=== PATIENT | female | born 1980 | race African-American/Black ===

== ENCOUNTER 2017-01-27 05:52 | Emergency (ER) | payer OTHER ==
[~2017-01-27] VITALS: Ht 160 cm; Wt 59.0 kg
[~2017-01-27 05:52] MED LIST: DOXE6TAB3 PO; LABE100T3 PO
[2017-01-27 06:20] VITALS: BP 131/75
[2017-01-27] MEDS ORDERED: CYCL5TAB PO (07:09)
--- NOTE | 2017-01-27 07:09 | PHYS DOC ---
Past Medical History Past Medical History: Hypertension, Other Additional Past Medical Histor: ectopic pregancy, chronic back pain Past Surgical History: Other Additional Past Surgical Histo: ectopic Alcohol Use: None Drug Use: None Adult General Chief Complaint Chief Complaint: PAIN CONTROL HPI HPI Patient is a 36 year old female who presents with 1 week of migratory back pain ; upper back pain and lower back pain. States pain is achy, intermittent. Denies inciting event or trauma. Denies rash, chest pain, dyspnea, cough, abd pain, dysuria, hematuria, vaginal bleeding or discharge. Review of Systems Review of Systems Constitutional: Denies fever or chills [] Eyes: Denies change in visual acuity, redness, or eye pain [] HENT: Denies nasal congestion or sore throat [] Respiratory: Denies cough or shortness of breath [] Cardiovascular: No additional information not addressed in HPI [] GI: Denies abdominal pain, nausea, vomiting, bloody stools or diarrhea [] : Denies dysuria or hematuria [] Musculoskeletal: Denies joint pain [] Integument: Denies rash or skin lesions [] Neurologic: Denies headache, focal weakness or sensory changes [] Endocrine: Denies polyuria or polydipsia [] Allergies Allergies Allergies Coded Allergies Type Severity Reaction Last Updated Verified No Known Drug Allergies 05/07/14 No Physical Exam Physical Exam Constitutional: Well developed, well nourished, no acute distress, non-toxic appearance. [] HENT: Normocephalic, atraumatic, bilateral external ears normal, oropharynx moist, nose normal. [] Eyes: PERRLA, EOMI. [] Neck: Normal range of motion, supple. [] Cardiovascular:Heart rate regular rhythm [] Lungs & Thorax: Bilateral breath sounds clear to auscultation [] Abdomen: Bowel sounds normal, soft, no tenderness. [] Skin: Warm, dry, no erythema, no rash. [] Back: No midline spinal tenderness, no CVA tenderness. Has some tenderness throughout thoracic and lumbar paraspinal muscles without visual or palpable abnormality. [] Extremities: ROM intact, no edema. [] Neurologic: Alert and oriented X 3, normal motor function, normal sensory function, no focal deficits noted. [] Psychologic: Affect normal, judgement normal, mood normal. [] Current Patient Data Vital Signs Vital Signs Date Time Temp Pulse Resp B/P Pulse Ox O2 Delivery O2 Flow Rate FiO2 01/27/17 06:20 98.6 81 18 100 Room Air 98.6 Lab Values Laboratory Tests Test 01/27/17 06:51 POC Urine HCG, Qualitative Hcg negative (Negative) Course & Med Decision Making Course & Med Decision Making Pertinent Labs and Imaging studies reviewed. (See chart for details) Discussed symptomatic care. Return precautions given. She understood and agrees with plan. Dragon Disclaimer Dragon Disclaimer This electronic medical record was generated, in whole or in part, using a voice recognition dictation system. Departure Departure Impression: Primary Impression: Back pain Disposition: HOME, SELF-CARE Condition: STABLE Referrals: Seun MCBRIDE MD (PCP) Patient Instructions: Back Pain, Adult, [id number] Additional Instructions: Take Tylenol or ibuprofen as needed for moderate pain. Take cyclobenzaprine as needed for severe pain. Do not drink, drive or operate heavy machinery after taking cyclobenzaprine as it may make you sleepy. Follow-up with your primary care doctor. Return for any concerns. Scripts Cyclobenzaprine Hcl 5 Mg Tablet1 Tab PO TID PRN MUSCLE SPASMS #10 TAB Prov:Miguel GHOTRA MD 01/27/17 Problem Qualifiers Primary Impression: Back pain Back pain location: back pain in unspecified location Chronicity: acute Back pain laterality: bilateral Qualified Code: M54.9 - Dorsalgia, unspecified Miguel GHOTRA MD Jan 27, 2017 07:09
== END 2017-01-27 07:22 | disposition home or self-care (01) ==
LOC: ER 05:52
DX: M54.5 Low back pain (principal); M54.6 Pain in thoracic spine; G89.29 Other chronic pain; I10 Essential (primary) hypertension
CPT/HCPCS: 81025; 99283

== ENCOUNTER → 2017-04-23 | Outpatient (CLI) | payer OTHER ==
[~2017-04-23] MED LIST changes: +CYCL5TAB PO
--- NOTE | 2017-04-23 09:42 | KCIC ---
EXAM: Lumbar spine, 5 views. HISTORY: Lordosis. Pain. COMPARISON: None. FINDINGS: Frontal, lateral, bilateral oblique and coned sacral views of the lumbar spine are obtained. There is minimal lumbar dextrocurvature. There is no listhesis. The vertebral bodies are normal in height and the disc spaces are preserved. There is slight sacralization of the transverse processes at L5. IMPRESSION: 1. No acute osseous finding. 2. Minimal lumbar dextrocurvature. Electronically signed by: Leeann England MD (04/23/2017 9:38 AM)
== END | disposition home or self-care (01) ==
LOC: KCIC 09:03
PROVIDERS: ATTEND Family Medicine
DX: M40.46 Postural lordosis, lumbar region (principal); M43.27 Fusion of spine, lumbosacral region
CPT/HCPCS: 72110

== ENCOUNTER → 2017-07-13 | Outpatient (CLI) | payer MEDICAID, OTHER ==
--- NOTE | 2017-07-15 15:19 | RAD ---
DATE: 07/15/2017 EXAM: DIGITAL SCREEN BILAT W/CAD HISTORY: 36-year-old female for baseline mammogram COMPARISON: None This study was interpreted with the benefit of Computerized Aided Detection (CAD). The breast parenchyma is heterogeneously dense, which could reduce sensitivity of mammography. Breast parenchyma level C. FINDINGS: No pathologically enlarged lymph nodes or skin thickening. No suspicious calcification or spiculated mass. Focal asymmetry seen in the upper outer quadrant of the left breast approximately 7 cm from the nipple on MLO view and measuring 1.6 x 1.1 cm in dimension. IMPRESSION: Small area of focal asymmetry in the left breast most likely overlapping glandular tissue. However, spot compression views are recommended for further evaluation. BI-RADS 0: Incomplete. BI-RADS CATEGORY: 0 INCOMPLETE: NEEDS ADDITIONAL IMAGING EVALUATION AND/OR PRIOR MAMMOGRAMS FOR COMPARISON. PQRS compliance statement: Patient information was entered into a reminder system with a target due date for the next mammogram. Mammography is a sensitive method for finding small breast cancers, but it does not detect them all and is not a substitute for careful clinical examination. A negative mammogram does not negate a clinically suspicious finding and should not result in delay in biopsying a clinically suspicious abnormality. "Our facility is accredited by the [employer] Mammography Program."
== END | disposition home or self-care (01) ==
LOC: MAMMO 08:12
PROVIDERS: ATTEND Family Medicine
DX: Z12.31 Encounter for screening mammogram for malignant neoplasm of breast (principal)
CPT/HCPCS: G0202; 77067

== ENCOUNTER → 2017-07-22 | Outpatient (CLI) | payer OTHER ==
--- NOTE | 2017-07-22 11:01 | RAD ---
DATE: 07/22/2017 EXAM: DIGITAL DIAGNOSTIC LT HISTORY: Asymmetric density in the left breast. COMPARISON: 07/13/2017 This study was interpreted with the benefit of Computerized Aided Detection (CAD). The breast parenchyma is heterogeneously dense, which could reduce sensitivity of mammography. Breast parenchyma level C. FINDINGS: Spot compression MLO and CC digital mammograms left breast was obtained. Comparison study is dated 07/13/2017. The area of increased density seen on the patient's recent mammogram compresses out and today spot compression mammograms. No mass is seen. IMPRESSION: The asymmetric density within the left breast compresses out on today's spot compression mammograms. I would recharacterize the patient's mammograms as a BI-RADS Category 1, negative no mammographic evidence of malignancy. Routine yearly screening mammography is recommended for follow-up. BI-RADS CATEGORY: 1 NEGATIVE RECOMMENDED FOLLOW-UP: 12M 12 MONTH FOLLOW-UP PQRS compliance statement: Patient information was entered into a reminder system with a target due date 07/22/2018 for the next mammogram. Mammography is a sensitive method for finding small breast cancers, but it does not detect them all and is not a substitute for careful clinical examination. A negative mammogram does not negate a clinically suspicious finding and should not result in delay in biopsying a clinically suspicious abnormality. "Our facility is accredited by the [employer] Mammography Program."
== END | disposition home or self-care (01) ==
LOC: MAMMO 10:27
PROVIDERS: ATTEND Family Medicine
DX: R92.8 Other abnormal and inconclusive findings on diagnostic imaging of breast (principal); N64.89 Other specified disorders of breast
CPT/HCPCS: G0206; 77065

== ENCOUNTER → 2017-08-21 | Outpatient (CLI) | payer OTHER ==
--- NOTE | 2017-08-21 15:34 | KCIC ---
MRI Lumbar Spine without contrast History: Low back pain Technique: Multiplanar, multi sequential noncontrast MR imaging was performed of the lumbar spine. Contrast: None Comparison: None Findings: Lumbar vertebral body stature and AP alignment are preserved. There is mild to moderate degenerative disc disease L5-S1. There is anterior radial tear L5-S1. There are likely small hemangiomas of L3 and L5. There is no significant marrow edema. Conus terminates at L1-2. L3-L4: Neural foramina and spinal canal are adequate. L4-L5: Neural foramina and spinal canal are adequate. L5-S1: Neural foramina and spinal canal are adequate. Impression: 1. There is no significant lumbar spinal stenosis or neural foramina compromise. There is mild/moderate degenerative disc disease L5-S1. There is anterior radial tear L5-S1. Electronically signed by: Eren Samson MD (08/21/2017 3:30 PM) [email or web address]
== END | disposition home or self-care (01) ==
LOC: KCIC MRI 13:55
PROVIDERS: ATTEND Family Medicine
DX: M51.37 Other intervertebral disc degeneration, lumbosacral region (principal)
CPT/HCPCS: 72148

== ENCOUNTER 2018-09-27 05:49 | Emergency (ER) | payer OTHER ==
[~2018-09-27] VITALS: Ht 172.7 cm; Wt 59.0 kg
[~2018-09-27 05:49] MED LIST changes: -LABE100T3 PO; +LABE100T5 PO
[2018-09-27 06:00] VITALS: BP 122/71
--- NOTE | 2018-09-27 06:30 | PHYS DOC ---
Past Medical History Past Medical History: Anxiety, Hypertension, Other Additional Past Medical Histor: INSOMNIA Past Surgical History: No Surgical History Additional Past Surgical Histo: ectopic Alcohol Use: None Drug Use: None Adult General Chief Complaint Chief Complaint: VAGINAL PROBLEM HPI HPI Patient is a 37 year old presented to ER today for evaluation of vaginal discharge for about a month. Patient says she was sexually active with a new partner, she said the condom broke. Patient status discharge was smelly in nature. She denies any pelvic pain, no vaginal bleeding, no abdominal pain, no fever, no vomiting. She also complaint of vaginal ITCHING. Review of Systems Review of Systems Constitutional: Denies fever or chills [] Eyes: Denies change in visual acuity, redness, or eye pain [] HENT: Denies nasal congestion or sore throat [] Respiratory: Denies cough or shortness of breath [] Cardiovascular: No additional information not addressed in HPI [] GI: Denies abdominal pain, nausea, vomiting, bloody stools or diarrhea [] : Positive for vaginal discharge Musculoskeletal: Denies back pain or joint pain [] Integument: Denies rash or skin lesions [] Neurologic: Denies headache, focal weakness or sensory changes [] Endocrine: Denies polyuria or polydipsia [] All other systems were reviewed and found to be within normal limits, except as documented in this note. Current Medications Current Medications Current Medications Medications (Trade) Dose Ordered Sig/Balbina Start Time Stop Time Status Last Admin Dose Admin Azithromycin (Zithromax) 1,000 mg 1X ONCE 09/27/18 06:45 09/27/18 06:46 DC 09/27/18 06:48 1,000 MG Ceftriaxone Sodium (Rocephin Im) 250 mg 1X ONCE 09/27/18 06:45 09/27/18 06:46 DC 09/27/18 06:48 250 MG Fluconazole (Diflucan) 150 mg 1X ONCE 09/27/18 06:45 09/27/18 06:46 DC 09/27/18 06:46 150 MG Allergies Allergies Allergies Coded Allergies Type Severity Reaction Last Updated Verified No Known Drug Allergies 05/07/14 No Physical Exam Physical Exam Constitutional: Well developed, well nourished, no acute distress, non-toxic appearance. [] HENT: Normocephalic, atraumatic, Eyes: PERRLA, EOMI, conjunctiva normal, no discharge. [] Neck: Normal range of motion, no tenderness, supple, no stridor. [] Cardiovascular:Heart rate regular rhythm, no murmur [] Lungs & Thorax: Bilateral breath sounds clear to auscultation [] Abdomen: Bowel sounds normal, soft, no tenderness, no masses, no pulsatile masses. : PELVIC EXAM: MODERATE DISCHARGE, WHITISH, NO ADNEXA TENDERNESS. Skin: Warm, dry, no erythema, no rash. [] Back: No tenderness, no CVA tenderness. [] Extremities: No tenderness, no cyanosis, no clubbing, ROM intact, no edema. [] Neurologic: Alert and oriented X 3, normal motor function, normal sensory function, no focal deficits noted. [] Psychologic: Affect normal, judgement normal, mood normal. [] Current Patient Data Vital Signs Vital Signs Date Time Temp Pulse Resp B/P (MAP) Pulse Ox O2 Delivery O2 Flow Rate FiO2 09/27/18 06:00 98.4 89 18 122/71 (88) 100 Room Air 98.4 Lab Values Laboratory Tests Test 09/27/18 07:04 POC Urine HCG, Qualitative Hcg negative (Negative) Microbiology 09/27/18 Wet Prep - Final, Complete EKG EKG [] Radiology/Procedures Radiology/Procedures [] Course & Med Decision Making Course & Med Decision Making Pertinent Labs and Imaging studies reviewed. (See chart for details) [] Dragon Disclaimer Dragon Disclaimer This electronic medical record was generated, in whole or in part, using a voice recognition dictation system. Departure Departure Impression: Primary Impression: Vaginitis Disposition: 01 HOME, SELF-CARE Condition: STABLE Referrals: Seun MCBRIDE MD (PCP) Patient Instructions: Vaginitis, [id number] Scripts Metronidazole (FLAGYL) 500 Mg Tablet 1 TAB PO BID for 7 Days, #14 TAB Prov: JEWELS TORRES DO 09/27/18 JEWELS TORRES DO Sep 27, 2018 06:30
[2018-09-27] MEDS ORDERED: cefTRIAXone IM 250 MG VIAL IM ONE (06:45)
[2018-09-27] MEDS ORDERED: AZITHROMYCIN 250 MG TABLET. PO ONE (06:45)
[2018-09-27] MEDS ORDERED: FLUCONAZOLE 100 MG TABLET. PO ONE (06:45)
[2018-09-27 07:22] LABS: BILIRUBIN,URINE NEGATIVE (NEG); CLARITY,URINE CLEAR; COLOR,URINE YELLOW; NITRITE,URINE NEGATIVE (NEG); PH,URINE 6.5; PROTEIN,URINE NEGATIVE (NEG-TRACE); UROBILINOGEN,URINE 0.2 mg/dL (0.2 mg/dL)
[2018-09-27] MEDS ORDERED: METR500T PO (07:23)
[2018-09-27 07:42] LABS: BACTERIA,URINE FEW /HPF (0-FEW); RBC,URINE OCC /HPF (0-2); SQUAMOUS EPITHELIAL CELL,UR MOD /LPF
[2018-09-27 07:43] LABS: TRICHOMONAS,URINE PRESENT
[2018-09-29 15:27] LABS: GC PROBE Negative (Negative)
== END 2018-09-27 07:32 | disposition home or self-care (01) ==
LOC: ER 05:49
DX: N76.0 Acute vaginitis (principal); I10 Essential (primary) hypertension
CPT/HCPCS: 81001; 81025; 87086; 87491; 87591; 96372; 99284; J0696; Q0111; Q0144

== ENCOUNTER 2018-10-25 04:09 | Emergency (ER) | payer OTHER ==
[~2018-10-25] VITALS: Ht 160 cm; Wt 59.0 kg
[~2018-10-25 04:09] MED LIST changes: +METR500T PO
[2018-10-25 04:12] VITALS: BP 141/93
[2018-10-25] MEDS ORDERED: NEOM10DR32 AS (04:26)
[2018-10-25] MEDS ORDERED: LIDOCAINE 2% VISCOUS 15 ML SOLUTION. MM ONE (04:30)
--- NOTE | 2018-10-25 05:01 | PHYS DOC ---
Past Medical History Past Medical History: Anxiety, Hypertension, Other Additional Past Medical Histor: INSOMNIA Past Surgical History: No Surgical History Additional Past Surgical Histo: ectopic Alcohol Use: None Drug Use: None Adult General Chief Complaint Chief Complaint: FOREIGNBODY EAR HPI HPI Patient is a 37 year old f p/w cockroach in ear Current Medications Current Medications Current Medications Medications (Trade) Dose Ordered Sig/Balbina Start Time Stop Time Status Last Admin Dose Admin Lidocaine HCl (Viscous Lidocaine) 15 ml 1X ONCE 10/25/18 04:30 10/25/18 04:31 DC 10/25/18 04:15 15 ML Allergies Allergies Allergies Coded Allergies Type Severity Reaction Last Updated Verified No Known Drug Allergies 05/07/14 No Physical Exam Physical Exam Constitutional: Well developed, well nourished mild distress HENT: after removal of cockroach there is noted ear canal erythema. no tm rupture. Eyes: PERRLA, EOMI, conjunctiva normal, no discharge. [] Neck: Normal range of motion, no tenderness, supple, no stridor. [] Pulmonary: Normal respiratory effort no increased work of breathing no obvious chest wall trauma Extremities: No tenderness, no cyanosis, no clubbing, ROM intact, no edema. [] Neurologic: Alert and oriented X 3, normal motor function, normal sensory function, no focal deficits noted. [] Psychologic: Affect normal, judgement normal, mood normal. [] EKG EKG [] Radiology/Procedures Radiology/Procedures [] Course & Med Decision Making Course & Med Decision Making Pertinent Labs and Imaging studies reviewed. (See chart for details) [] er course viscous lidocaine placed in ear canal within a few minutes of arrival bug stopped moving. i pulled it out whole with forceps. pt feeling better cortisporin otic rx. Dragon Disclaimer Dragon Disclaimer This electronic medical record was generated, in whole or in part, using a voice recognition dictation system. Departure Departure Impression: Primary Impression: Foreign body in ear Disposition: 01 HOME, SELF-CARE Condition: STABLE Patient Instructions: Ear Foreign Body, [id number] Scripts Neomycin/Polymyxin B Sulf/Hc ([id number] EAR SUSP) 10 Ml Drops.susp 3 DROP TID, #10 ML Prov: NYASIA HEDRICK MD 10/25/18 NYASIA HEDRICK MD Oct 25, 2018 05:01
== END 2018-10-25 05:05 | disposition home or self-care (01) ==
LOC: ER 04:09
DX: T16.2XXA Foreign body in left ear, initial encounter (principal); I10 Essential (primary) hypertension; X58.XXXA Exposure to other specified factors, initial encounter; Y93.89 Activity, other specified; Y92.89 Other specified places as the place of occurrence of the external cause; Y99.8 Other external cause status
CPT/HCPCS: 69200; 99284-25

== ENCOUNTER 2021-08-01 11:25 | Emergency (ER) | payer OTHER ==
[~2021-08-01] VITALS: Ht 165.1 cm; Wt 80.0 kg
[~2021-08-01 11:25] MED LIST changes: +NEOM10DR32 AS
[2021-08-01 12:37] LABS: BILIRUBIN,URINE NEGATIVE (NEG); CLARITY,URINE CLEAR; COLOR,URINE YELLOW; NITRITE,URINE NEGATIVE (NEG); PROTEIN,URINE NEGATIVE (NEG-TRACE); U PREG PATIENT NEGATIVE (NEG); UROBILINOGEN,URINE 0.2 mg/dL (0.2 mg/dL)
[2021-08-01 12:46] LABS: BACTERIA,URINE FEW /HPF (0-FEW); RBC,URINE OCC /HPF (0-2)
[2021-08-01] MEDS ORDERED: cefTRIAXone IM 500 MG VIAL. IM ONE (14:00)
[2021-08-01] MEDS ORDERED: metroNIDAZOLE 500 MG TABLET PO ONE (14:00)
[2021-08-01] MEDS ORDERED: DOXY100C3 PO (14:03)
[2021-08-01] MEDS ORDERED: METR500T PO (14:03)
[2021-08-01] MEDS ORDERED: FLUC150T PO (14:03)
--- NOTE | 2021-08-01 14:03 | PHYS DOC ---
Past Medical History Past Medical History: Anxiety, Hypertension, Other Additional Past Medical Histor: INSOMNIA Past Surgical History: No Surgical History Additional Past Surgical Histo: ectopic Smoking Status: Current Every Day Smoker Alcohol Use: None Drug Use: None General Adult EDM: Chief Complaint: VAGINAL PROBLEM HPI: HPI: Patient is a 40 year old female presents emergency department with STI concerns. Patient reports having sex in which condom broke during sex a week ago. Patient reports vaginal itching with white discharge with odor over the past 3 days. Patient denies increased urination, denies dysuria, denies increas ed urinary frequency or seeing blood in her urine. Patient denies seeing blood in her stool. Denies nausea, vomiting, diarrhea, denies rashes or lesions to her vaginal area. Patient denies vaginal bleeding. Patient denies nausea, vomiting, diarrhea or abdominal pains. Patient denies recent fever or chills. Denies other physical complaints or physical concerns. Review of Systems: Review of Systems: 14 body systems of review of systems have been reviewed. See HPI for pertinent positives and negative responses, otherwise all other systems are negative, nonpertinent or noncontributory. Constitutional: Negative except as outlined in HPI above. Skin: Negative except as outlined in HPI above. Eyes: Negative except as outlined in HPI above. HENT: Negative except as outlined in HPI above. Respiratory: Negative except as outlined in HPI above. Cardiovascular: Negative except as outlined in HPI above. GI: Negative except as outlined in HPI above. : Negative except as outlined in HPI above. Musculoskeletal: Negative except as outlined in HPI above. Integument: Negative except as outlined in HPI above. Neurologic: Negative except as outlined in HPI above. Endocrine: Negative except as outlined in HPI above. Lymphatic: Negative except as outlined in HPI above. Psychiatric: Negative except as outlined in HPI above. Heart Score: C/O Chest Pain: No Risk Factors: Risk Factors: DM, Current or recent (<one month) smoker, HTN, HLP, family history of CAD, obesity. Risk Scores: Score 0 - 3: 2.5% MACE over next 6 weeks - Discharge Home Score 4 - 6: 20.3% MACE over next 6 weeks - Admit for Clinical Observation Score 7 - 10: 72.7% MACE over next 6 weeks - Early Invasive Strategies Allergies: Allergies: Allergies Coded Allergies Type Severity Reaction Last Updated Verified No Known Drug Allergies 08/01/21 No Physical Exam: PE: Constitutional: Well developed, well nourished, no acute distress, non-toxic appearance. 40-year-old female in no apparent distress. HENT: Normocephalic, atraumatic. Eyes: Conjunctiva normal, no discharge. Neck: Normal range of motion. Cardiovascular: Distal cap refill less than 2 seconds, no cyanosis appreciated. Lungs & Thorax: Patient is in no respiratory distress, no adventitious lung sounds appreciated. Abdomen: Bowel sounds normal, soft, no tenderness, no masses, no pulsatile masses. No bruising or skin discoloration of the abdomen. Skin: Warm, dry, no erythema, no rash. Back: No tenderness, no CVA tenderness. Extremities: No tenderness, no cyanosis, no clubbing, ROM intact, no edema. Neurologic: Alert and oriented X 3, normal motor function, normal sensory function, no focal deficits noted. Psychologic: Affect normal, judgement normal, mood normal. : Patient refused vaginal examination/speculum examination, prefers to self swab. Current Patient Data: Labs: Laboratory Tests Test 08/01/21 11:47 Urine Collection Type Unknown Urine Color Yellow Urine Clarity Clear Urine pH 6.0 Urine Specific [place] 1.015 Urine Protein Negative mg/dL Urine Glucose (UA) Negative mg/dL Urine Ketones (Stick) Negative mg/dL Urine Blood Negative Urine Nitrite Negative Urine Bilirubin Negative Urine Urobilinogen Dipstick 0.2 mg/dL Urine Leukocyte Esterase Large Urine RBC Occ /HPF Urine WBC 11-20 /HPF Urine Squamous Epithelial Cells Mod /LPF Urine Bacteria Few /HPF Urine Mucus Mod /LPF Urine Test Negative Laboratory Tests Test 08/01/21 11:47 Urine Collection Type Unknown Urine Color Yellow Urine Clarity Clear Urine pH 6.0 (<5.0-8.0) Urine Specific [place] 1.015 (1.000-1.030) Urine Protein Negative mg/dL (NEG-TRACE) Urine Glucose (UA) Negative mg/dL (NEG) Urine Ketones (Stick) Negative mg/dL (NEG) Urine Blood Negative (NEG) Urine Nitrite Negative (NEG) Urine Bilirubin Negative (NEG) Urine Urobilinogen Dipstick 0.2 mg/dL (0.2 mg/dL) Urine Leukocyte Esterase Large (NEG) Urine RBC Occ /HPF (0-2) Urine WBC 11-20 /HPF (0-4) Urine Squamous Epithelial Cells Mod /LPF Urine Bacteria Few /HPF (0-FEW) Urine Mucus Mod /LPF Urine Test Negative (NEG) Microbiology 08/01/21 Wet Prep - Final, Complete Vital Signs: Vital Signs Date Time Temp Pulse Resp B/P (MAP) Pulse Ox O2 Delivery O2 Flow Rate FiO2 08/01/21 11:49 98.2 80 15 143/84 98 98.2 EKG: EKG: [] Radiology/Procedures: Radiology/Procedures: [] Course & Med Decision Making: Course & Med Decision Making Pertinent Labs and Imaging studies reviewed. (See chart for details) 40-year-old female, vital signs reviewed, presents emergency department with STI concerns. Patient refused vaginal examination stating that she would rather self swab. Discussed with patient will order urinalysis assay with test, GC/chlamydia/wet prep. Level 2 ED planning. The patient is not , the patient's urine is not infected, the patient's wet prep is positive for trichomonas, clue cells, negative for yeast. Discussed findings with patient, will treat for trichomonas in ED today, will treat prophylactically for gonorrhea and chlamydia, 500 mg Rocephin IM in ED today. Home prescriptions for Flagyl and doxycycline, patient does report history of yeast infections after taking antibiotics, will prescribe Diflucan. Discussed safe sex practices and condom barrier sex. Patient is amenable to ED discharge planning. Discussed with the patient all findings and diagnostic testing as well as the need to follow-up with their primary care provider for further evaluation and treatment or return to the ED if any new or worsening symptoms. Strict return precautions were also discussed at length, the patient voiced understanding and agreement with the discharge planning. The patient was nontoxic in appearance, in no apparent distress, and hemodynamically stable at the time of disposition. Dragon Disclaimer: [employer] Disclaimer: This electronic medical record was generated, in whole or in part, using a voice recognition dictation system. Departure Departure Impression: Primary Impression: STI (sexually transmitted infection) Disposition: HOME / SELF CARE / HOMELESS Condition: GOOD Referrals: NO PCP (PCP) Patient Instructions: Sexually Transmitted Disease Additional Instructions: You were seen today in the emergency department for concerns of sexually transmitted diseases. As we discussed your vaginal culture for gonorrhea and chlamydia are pending at this time however you and I have made a joint decision to treat for gonorrhea and chlamydia starting today. Your wet prep vaginal culture was positive for bacterial vaginosis and trichomonas, there was no yeast infection noted. Your treatment has started today, I have prescribed your medications that you will take twice a day for the next 7 days at home. I have also prescribed Diflucan for yeast infections. Please take as directed. Please continue to use condom barrier sex during sexual intercourse. Please refrain from sex during STI treatment. Please follow-up with your primary care physician for ongoing symptoms. Thank you for visiting our Emergency Department. It was a pleasure taking care of you today in the emergency department and we appreciate you trusting us with your care. If any additional problems come up don't hesitate to return to visit us. Please follow up with your primary care provider so they can plan additional care if needed and know about the problem that you had. If symptoms worsen come back to the Emergency Department. Any concerning symptoms that start such as chest pain, shortness of air, weakness or numbness on one side of the body, running high fevers or any other concerning symptoms return to the ER. Scripts Fluconazole (DIFLUCAN) 150 Mg Tablet 1 TAB PO ONCE, #2 TAB 1 Refill Take 1 tablet in 3 days, take the last tablet at the completion of your antibiotic treatment regimen. Prov: DWAIN WASHINGTON APRN 08/01/21 Doxycycline Hyclate (DOXYCYCLINE HYCLATE) 100 Mg Capsule 1 CAP PO BID for STI, #14 CAP 0 Refills Prov: DWAIN WASHINGTON APRN 08/01/21 Metronidazole (FLAGYL) 500 Mg Tablet 1 TAB PO BID for BV, #14 TAB 0 Refills Prov: DWAIN WASHINGTON APRN 08/01/21 DWAIN WASHINGTON APRN Aug 01, 2021 14:03
[2021-08-01 14:20] VITALS: BP 141/70
[2021-08-03 15:29] LABS: GC PROBE Negative (Negative)
== END 2021-08-01 14:23 | disposition home or self-care (01) ==
LOC: ER 11:25
DX: A64 Unspecified sexually transmitted disease (principal); I10 Essential (primary) hypertension; F17.200 Nicotine dependence, unspecified, uncomplicated
CPT/HCPCS: 81001; 81025; 87086; 87491; 87591; 96372; 99283; J0696; Q0111